=== PATIENT | male | born 1990 | race African-American/Black ===

== ENCOUNTER 2023-12-01 12:26 | Emergency (ER) | payer SELFPAY ==
[~2023-12-01] VITALS: Ht 175.3 cm; Wt 81.0 kg
[2023-12-01 12:49] VITALS: O2SAT 99
[2023-12-01 13:26] LABS: BASOPHILS % 0.5 % (0.0-2.0); EOSINOPHILS % 0.1 % (0.0-5.0); HEMATOCRIT. 42.3 % (42.0-52.0); HEMOGLOBIN. 14.5 g/dL (14.0-18.0); LYMPHOCYTES % 11.3 % (20.0-50.0); MEAN CORPUSCULAR HEMOGLOBIN 32.1 pg (28.0-32.0); MEAN CORPUSCULAR HGB CONC 34.3 g/dL (31.0-37.0); MEAN CORPUSCULAR VOLUME 93.4 fL (80.0-94.0); MONOCYTES % 11.2 % (2.0-8.0); NEUTROPHILS % 76.9 % (40.0-76.0); PLATELET 383 x1000/uL (130-400); RED BLOOD CELL COUNT 4.53 mill/uL (4.7-6.1); RED CELL DISTRIBUTION WIDTH 13.6 % (11.6-14.6); WHITE BLOOD COUNT 5.7 x1000/uL (4.5-11.0)
[2023-12-01 13:31] LABS: CHLORIDE 99 mEq/L (98-107); POTASSIUM 4.2 mEq/L (3.5-5.1); SODIUM 136 mEq/L (136-145)
[2023-12-01 13:32] LABS: CALCIUM 10.3 mg/dL (8.7-10.4); CARBON DIOXIDE 25 mEq/L (21-32)
[2023-12-01 13:37] LABS: CREATININE 1.1 mg/dL (0.6-1.3); GLUCOSE 94 mg/dL (70-105); UREA NITROGEN BLOOD 9 mg/dL (9-23)
[2023-12-01 13:39] LABS: ALANINE AMINOTRANSFERASE 36 IU/L (10-49); ALBUMIN 4.9 g/dL (3.2-4.8); ASPARTATE AMINOTRANSFERASE 63 IU/L (<34); BILIRUBIN DIRECT 0.9 mg/dL (<=3.0)
[2023-12-01 13:40] LABS: PROTEIN TOTAL 7.8 g/dL (6.0-8.3)
[2023-12-01 13:53] VITALS: TEMP 98.4
[2023-12-01 14:08] LABS: CLARITY URINE CLEAR (CLEAR); COLOR URINE YELLOW (YELLOW); GLUCOSE URINE NEGATIVE (NEGATIVE); KETONES URINE 1+ (NEGATIVE); LEUKOCYTE ESTERASE URINE NEGATIVE (NEGATIVE); NITRITE URINE NEGATIVE (NEGATIVE); OCCULT BLOOD URINE NEGATIVE (NEGATIVE); PH URINE 8.5 (4.5-8.0); PROTEIN URINE NEGATIVE (NEGATIVE); SPECIFIC GRAVITY URINE 1.006 (1.005-1.030)
[2023-12-01] MEDS: FOLIC ACID 1 MG, THIAMINE HCL 100 MG, MVI, ADULT NO.1 10 ML in DEXTROSE 5% WATER 1,000 ML IV ONE (14:17)
[2023-12-01] MEDS: CHLORDIAZEPOXIDE 25MG CAPSULE PO ONE (14:46)
[2023-12-01 15:45] VITALS: BP 118/59; PULSE 76; RESP 19
== END 2023-12-01 17:06 | disposition home or self-care (01) ==
LOC: ER 12:26
DX: F10.239 Alcohol dependence with withdrawal, unspecified (principal); Y90.0 Blood alcohol level of less than 20 mg/100 ml
CPT/HCPCS: 80076; 80048; 81003; 80320; 83690; 85025; 36415; 96365; 99284; J3490 ×2; J3411; J7070; G0480

== ENCOUNTER 2023-12-13 20:52 | Emergency (ER) | payer SELFPAY ==
[~2023-12-13] VITALS: Ht 175.3 cm; Wt 84.0 kg
[2023-12-13 20:55] VITALS: TEMP 98.2; O2SAT 99
[2023-12-13] MEDS ORDERED: CHLORDIAZEPOXIDE 25MG CAPSULE PO ONE (21:15)
[2023-12-13] MEDS ORDERED: LORAZEPAM 2MG/ML INJ IV ONE (21:15)
[2023-12-13] MEDS: SODIUM CHLORIDE 0.9% 1000ML BAG (SEPSIS BOLUS) IV ONE (21:15)
[2023-12-13] MEDS ORDERED: ONDANSETRON HCL 4MG/2ML INJ IV ONE (21:15)
[2023-12-13] MEDS: FOLIC ACID 1 MG, THIAMINE HCL 100 MG, MVI, ADULT NO.1 10 ML in DEXTROSE 5% WATER 1,000 ML IV ONE ×2 (21:45→23:45)
[2023-12-14] MEDS: CHLORDIAZEPOXIDE 25MG CAPSULE PO NR (02:28)
[2023-12-14] MEDS: ONDANSETRON HCL 4MG/2ML INJ IV NR (02:29)
[2023-12-14] MEDS: LORAZEPAM 2MG/ML INJ IV NR (02:29)
[2023-12-14] MEDS ORDERED: CHLO25CA10 MT (02:42)
[2023-12-14] MEDS ORDERED: CHLO25CA11 MT ×2 (02:49→03:07)
[2023-12-14 02:54] LABS: BASOPHILS % 0.5 % (0.0-2.0); HEMATOCRIT. 39.2 % (42.0-52.0); LYMPHOCYTES % 16.1 % (20.0-50.0); MEAN CORPUSCULAR HEMOGLOBIN 31.8 pg (28.0-32.0); MEAN CORPUSCULAR HGB CONC 33.2 g/dL (31.0-37.0); MEAN CORPUSCULAR VOLUME 95.9 fL (80.0-94.0); MEAN PLATELET VOLUME 6.6 fl (7.4-10.4); MONOCYTES % 13.7 % (2.0-8.0); NEUTROPHILS % 69.7 % (40.0-76.0); PLATELET 359 x1000/uL (130-400); RED BLOOD CELL COUNT 4.09 mill/uL (4.7-6.1); RED CELL DISTRIBUTION WIDTH 13.9 % (11.6-14.6); WHITE BLOOD COUNT 7.4 x1000/uL (4.5-11.0)
[2023-12-14 03:01] LABS: CHLORIDE 96 mEq/L (98-107); POTASSIUM 3.5 mEq/L (3.5-5.1); SODIUM 134 mEq/L (136-145)
[2023-12-14 03:02] LABS: CARBON DIOXIDE 21 mEq/L (21-32)
[2023-12-14 03:03] LABS: CALCIUM 9.1 mg/dL (8.7-10.4)
[2023-12-14 03:07] LABS: GLUCOSE 69 mg/dL (70-105)
[2023-12-14 03:08] LABS: UREA NITROGEN BLOOD 8 mg/dL (9-23)
[2023-12-14 03:09] LABS: ALANINE AMINOTRANSFERASE 49 IU/L (10-49); ALBUMIN 4.3 g/dL (3.2-4.8); ASPARTATE AMINOTRANSFERASE 82 IU/L (<34)
[2023-12-14 03:10] LABS: BILIRUBIN TOTAL 2.4 mg/dL (0.1-1.0); PROTEIN TOTAL 6.7 g/dL (6.0-8.3)
[2023-12-14] MEDS ORDERED: ONDA4TAB50 MT (03:14)
[2023-12-14 04:13] VITALS: BP 106/59; PULSE 94; RESP 23
== END 2023-12-14 04:15 | disposition home or self-care (01) ==
LOC: ER 20:52
DX: F10.239 Alcohol dependence with withdrawal, unspecified (principal); F12.10 Cannabis abuse, uncomplicated; Y90.9 Presence of alcohol in blood, level not specified
CPT/HCPCS: 36415; 96361; 96365; 99291; 80053; 83690; 85025; 96375; J3490 ×2; J3411; J7070; J7030; J2060; J2405; Z7610